=== PATIENT | male | born 1950 | race Caucasian/White ===

== ENCOUNTER 2017-05-21 13:02 | Day surgery (SDC) | payer MEDICARE ==
[2017-05-18 13:20] VITALS: BMI 14.9
[~2017-05-21 13:02] MED LIST: TRANEXAMIC ACID 1,000 MG in SODIUM CHLORIDE 0.9% 100 ML IVPB ONE; ceFAZolin 2 GM in SODIUM CHLORIDE 0.9% 100 ML IVPB ONE
[2017-05-21] MEDS ORDERED: LACTATED RINGERS 1,000 ML IV ONE ×2 (14:12)
[2017-05-21] MEDS: MIDAZOLAM 2 MG/2 ML VIAL IVP ONE ×2 (14:41→15:34)
[2017-05-21] MEDS ORDERED: fentaNYL (PF) 50 MCG/ML 2 ML AMP IVP ONE (14:44)
[2017-05-21] MEDS ORDERED: DEXAMETHASONE SOD PHOSPHATE 10 MG/ML 1 ML VIAL IV ONE (15:00)
[2017-05-21] MEDS ORDERED: ONDANSETRON 4 MG/2 ML VIAL IVP ONE (15:01)
--- NOTE | 2017-05-21 15:10 | P.ONQ ---
Anesthesiology Proc Note - PNB - Peripheral Nerve Block Performed Left Interscalene Single Time Out Performed: Yes Procedure Start Time: 14:40 Procedure Stop Time: 14:50 Indication: Acute Post-Operative Pain, Requested by physician Specifically requested for management of pain by DrFrederic: Steven Gutierrez Sedation Type: Sedate with meaningful contact maintained Preparation: Sterile Prep Position: Supine Needle Types: Facet Needle Size: 50mm (2") Needle Gauge: 21 Technique: Ultrasound (BUPIVACAIN 0.5 % WITH EPI 12 ML PLUS LIDOCAINE 2 % WITH EPI 1/200 K 12 ML )
--- NOTE | 2017-05-21 15:46 | P.OPNOTE ---
Outpatient Note - . Assessment/Comments:: Mr. Dawson presents today for his surgery. In review of his clearances, he was cleared fully by his medical doctor, but his rail car maintenance mechanic cleared him for closed reduction only, in light of his medical status. In light of this, I have discussed with Mr. Dawson the plan of closed reduction without the creation of a surgical incision. This would mainly be to reduce the fracture enough that the soft tissue was not entrapped in the fracture. I discussed this operation with him in detail and he wishes to proceed. I discussed risks and potential complications as being inclusive of, but not limited to: Malunion , nonunion, stiffness, adhesions, continued pain, need for further procedures, issues with the biceps tendon, neurovascular issues, and loss of use of arm. He wishes to proceed and has signed the consent form. The procedure will be performed momentarily for him.
[2017-05-21] MEDS ORDERED: GLYCOPYRROLATE 0.2 MG/ML 2 ML VIAL ONE (16:14)
[2017-05-21] MEDS ORDERED: LIDOCAINE 2%-EPI 1:100,000 20 ML VIAL ONE (16:14)
[2017-05-21] MEDS ORDERED: KETAMINE 10 MG/ML 20 ML VIAL ONE (16:14)
[2017-05-21] MEDS ORDERED: PROPOFOL 10 MG/ML 20 ML VIAL IV ONE (16:14)
[2017-05-21] MEDS ORDERED: ROPIVACAINE 5 MG/ML 30 ML VIAL ONE (16:14)
[2017-05-21 16:49] VITALS: TEMP 96.9
[2017-05-21 17:01] VITALS: RESP 16
[2017-05-21] MEDS: HYDROmorphone 1 MG/ML 1 ML SYRINGE IVP ONE ×2 (17:17→17:23)
[2017-05-21 18:05] VITALS: BP 139/76; PULSE 69
--- NOTE | 2017-05-21 21:49 | XR ---
EXAMINATION TYPE: XR shoulder limited LT DATE OF EXAM: 05/21/2017 COMPARISON: NONE HISTORY: CLOSED REDUCTION LEFT SHOULDER Closed reduction left shoulder. Dr. Glover with 15 sec fluoro time.
--- NOTE | 2017-05-21 23:36 | P.OP ---
Date of Procedure: 05/21/17 Preoperative Diagnosis: Postoperative Diagnosis: Procedure(s) Performed: Preoperative diagnosis: Left proximal humerus displaced fracture with soft tissue entrapment Postoperative diagnosis: Left proximal humerus displaced fracture with soft tissue entrapment Procedure: Left proximal humerus closed reduction and disengagement of soft tissue from fracture site Surgeon: Matt Anesthesia: sedation and interscalene block (which appeared to be only partially successful) EBL: none Complications: none Indications: Mr. Dawson is a 66 year old male with multiple medical problems including end-stage lung disease, hepatitis C, cachexia, and substance abuse who fell and injured his shoulder a few weeks ago. He sustained a displaced proximal humerus fracture on the left. He is left hand dominant. He has undergone preoperative CT scanning which has shown a moderately displaced humeral neck fracture, but the most notable element on his examination is the presence of puckering of the anterior skin indicating soft tissue entrapment around a spike of bone or in the fracture site. I have spoken to him and his at length about open reduction and internal fixation versus closed reduction and although he wishes to proceed with internal fixation, his pulmonary physician is worried about his ability to tolerate a large surgery of this sort without sustaining a complication such as wound problems, infection, nonunion, or complication involving his pulmonary status. I personally spoke with his pulmonary physician, Dr. Hernández, and am also similarly concerned. Up to the time of surgery, he was still actively smoking, claiming that he quit recently. I have therefore advised him to follow the advice of his pulmonary physician and avoid major surgery. He has signed a consent for closed reduction of the left proximal humerus. I have explained the procedure to him and he wishes to proceed. For further details, please see my preoperative note. Procedure: After appropriate consent was obtained from the patient, he was taken to the operating room and placed in the supine position. Interscalene block had already been administered in preoperative holding. Under C-arm imaging, the proximal humerus fracture was evaluated. The IS block did not appear to be totally effective as he was still reporting significant pain with any movement of the shoulder and palpation of the fracture area. Anesthesia personnel therefore administered propofol for IV sedation. He was able to relax a bit more, and the fracture was gently manipulated so that the skin puckering superficially was eliminated. This was performed by rotation of the shoulder in various directions with direct mobilization of the skin and underlying deltoid until the puckering was disengaged. Range of motion of the shoulder appeared to improve once this was performed. The fracture still remained moderately displaced and the fragments themselves had limited mobility , presumably due to the time since the fracture (approximately 3 weeks). This patient had significant cachexia with osteoporosis and I did not feel that forceful manipulation to try to fully reduce the fracture would be prudent. C- arm images were taken and saved before and after placement of the sling. The patient's shoulder was then placed into a shoulder immobilizer sling and final C-arm images were taken. EBL was none. He tolerated the procedure well and was taken to recovery room in stable condition. Implants: Indications for Procedure: Operative Findings: Description of Procedure:
--- NOTE | 2017-05-22 07:58 | FL ---
Fluoroscopy History: CLOSED REDUCTION LEFT SHOULDER Closed reduction left shoulder. Dr. Glover with 15 sec fluoro time.
== END 2017-05-21 18:05 | disposition home or self-care (01) ==
LOC: OR 13:02
PROVIDERS: ATTEND Orthopaedic Surgery
DX: S42.212A Unspecified displaced fracture of surgical neck of left humerus, initial encounter for closed fracture (principal); W19.XXXA Unspecified fall, initial encounter; J44.9 Chronic obstructive pulmonary disease, unspecified; Z87.891 Personal history of nicotine dependence; J43.9 Emphysema, unspecified; Z79.891 Long term (current) use of opiate analgesic; Z99.81 Dependence on supplemental oxygen; Z79.899 Other long term (current) drug therapy; R64 Cachexia; M81.0 Age-related osteoporosis without current pathological fracture
CPT/HCPCS: 73020; 23605; J2250; J1100; J2405; J3010; J1170; J2795; J2704

== ENCOUNTER 2017-06-01 09:31 | Inpatient (IN) | payer MEDICARE ==
[2017-06-01] MEDS ORDERED: SODIUM CHLORIDE 0.9% 1,000 ML IV STA (10:03)
[2017-06-01] MEDS ORDERED: DIPH,PERTUS(ACELL)TETVAC-LF 0.5 ML VIAL IM ONE (10:03)
[2017-06-01] MEDS ORDERED: HYDROmorphone 1 MG/ML 1 ML SYRINGE IVP STA ×2 (10:04→11:41)
--- NOTE | 2017-06-01 10:07 | ED ---
General Adult HPI - General Chief complaint: Fall Stated complaint: fall left arm injury Time Seen by Provider: 06/01/17 09:35 Source: patient, RN notes reviewed Mode of arrival: wheelchair Limitations: no limitations - History of Present Illness Initial comments: This is a 66-year-old male who presents to the emergency department after he got lightheaded this morning felt. Patient states his been ongoing for a year and his primary medical care doctor thought it was vertical. Patient states today he felt the back of his head and lost consciousness for about 10 seconds. Patient states he does know why he keeps getting lightheaded. Patient states he smokes drink coffee and drink some water but does not eat much. Patient states he has no appetite. Patient states he has a history of hepatitis C. Patient denies any chest pain or palpitations. Patient denies shortness of breath or difficulty breathing. Patient denies any recent fever chills or cough. Patient denies abdominal pain patient denies back pain. Patient complains of left elbow pain because when he fell he struck his elbow. Patient states he already has a left humerus fracture. - Related Data Home Medications Medication Instructions Recorded Confirmed Atorvastatin [Lipitor] 20 mg PO QAM 05/18/17 06/01/17 Hydrocodone/Acetaminophen 1 tab PO QID 05/18/17 06/01/17 [Hydrocodone/Acetaminophen 10-300] Meclizine [Antivert] 25 mg PO TID PRN 05/18/17 06/01/17 Omeprazole 40 mg PO QAM 05/18/17 06/01/17 PARoxetine HCL 20 mg PO QAM 05/18/17 06/01/17 Tamsulosin HCl [Flomax] 0.4 mg PO QAM 05/18/17 06/01/17 Temazepam 30 mg PO HS 05/18/17 06/01/17 Aspirin 81 mg PO DAILY 06/01/17 06/01/17 Diltiazem Cd [Cardizem Cd] 180 mg PO DAILY 06/01/17 06/01/17 Allergies Allergy/AdvReac Type Severity Reaction Status Date / Time No Known Allergies Allergy Verified 06/01/17 11:13 Review of Systems ROS Statement: Those systems with pertinent positive or pertinent negative responses have been documented in the HPI. ROS Other: All systems not noted in ROS Statement are negative. Past Medical History Past Medical History: Eye Disorder, Liver Disease, Osteoarthritis (OA), Prostate Disorder, Respiratory Disorder Additional Past Medical History / Comment(s): Hx Emphysema. Chronic Hepatitis C , was treated with no success. Current right eye cataract. Denies any heart, blood pressure or high cholesterol problems. States Dr put him on Cardizem as a precaution due to his age. History of Any Multi-Drug Resistant Organisms: None Reported Past Surgical History: Back Surgery Additional Past Surgical History / Comment(s): Laminectomy X3, Laminectomy with fusion X1. Had Right Upper Lobe of lung removed. Past Anesthesia/Blood Transfusion Reactions: No Reported Reaction Past Psychological History: No Psychological Hx Reported Smoking Status: Current every day smoker Past Alcohol Use History: None Reported Past Drug Use History: Marijuana - Past Family History Father Family Medical History: Cancer Additional Family Medical History / Comment(s): prostate cancer Mother Family Medical History: Cancer Additional Family Medical History / Comment(s): "Female Cancer" General Exam - General Exam Comments Initial Comments: GENERAL: Patient is well-developed and is cachectic in appearance.. Patient is nontoxic and well-hydrated and is in mild distress. ENT: Neck is soft and supple. No significant lymphadenopathy is noted. Oropharynx is clear. Moist mucous membranes. Neck has full range of motion without eliciting any pain. EYES: The sclera were anicteric and conjunctiva were pink and moist. Extraocular movements were intact and pupils were equal round and reactive to light. Eyelids were unremarkable. PULMONARY: Unlabored respirations. Good breath sounds bilaterally. No audible rales rhonchi or wheezing was noted. CARDIOVASCULAR: There is a regular rate and rhythm without any murmurs gallops or rubs. ABDOMEN: Soft and nontender with normal bowel sounds. No palpable organomegaly was noted. There is no palpable pulsatile mass. SKIN: Patient has a laceration to the scalp measuring about 2-1/2 cm. NEUROLOGIC: Patient is alert and oriented x3. Cranial nerves II through XII are grossly intact. Motor and sensory are also intact. Normal speech, volume and content. Symmetrical smile. MUSCULOSKELETAL: Patient's proximal humerus is tender and that is where he states he broke a previously. Patient now also has tenderness around the left elbow. LYMPHATICS: No significant lymphadenopathy is noted PSYCHIATRIC: Normal psychiatric evaluation. Limitations: no limitations Course Vital Signs 06/01/17 06/01/17 06/01/17 09:33 11:00 11:11 Temperature 97.2 F L Pulse Rate 107 H 67 Pulse Rate [ 75 Sitting Nursing Home Admissions Director] Pulse Rate [ 68 Standing Nursing Home Admissions Director ] Pulse Rate [ 66 Supine Nursing Home Admissions Director] Respiratory 16 17 18 Rate Blood Pressure 97/57 110/59 Blood Pressure 89/53 [Right Arm Sitting] Blood Pressure 77/50 [Right Arm Standing] Blood Pressure 113/59 [Right Arm Supine] O2 Sat by Pulse 96 96 96 Oximetry Procedures - Laceration Laceration #1 Consent Obtained: verbal consent Time Out Performed: Yes Indication: laceration Site: scalp Description: linear Type of Sutures: other (Fults 3) - Orthopedic Splinting/Casting Injury #1 Side: left Upper Extremity Injury Location: elbow Upper Extremity Immobilizer: posterior splint (This is a long arm splint) Medical Decision Making - Medical Decision Making EKG shows normal sinus rhythm at [address] interval 170 QRS is 104 QT interval 390 QTC is 453 per patient's EKG shows no ST segment elevation or depression or T wave abnormalities are noted. X-ray of the elbow shows no occult fracture possibly. X-ray the chest shows no acute abnormality. CT of the head and neck show no acute normalities - Lab Data Result diagrams: 06/01/17 09:57 06/01/17 09:57 Lab Results 06/01/17 06/01/17 06/01/17 Range/Units 09:57 09:57 09:57 WBC 8.6 (3.8-10.6) k/uL RBC 3.93 L (4.30-5.90) m/uL Hgb 11.9 L (13.0-17.5) gm/dL Hct 37.2 L (39.0-53.0) % MCV 94.6 (80.0-100.0) fL MCH 30.4 (25.0-35.0) pg MCHC 32.1 (31.0-37.0) g/dL RDW 14.0 (11.5-15.5) % Plt Count 254 (150-450) k/uL Neutrophils % 72 % Lymphocytes % 19 % Monocytes % 6 % Eosinophils % 1 % Basophils % 0 % Neutrophils # 6.2 (1.3-7.7) k/uL Lymphocytes # 1.7 (1.0-4.8) k/uL Monocytes # 0.5 (0-1.0) k/uL Eosinophils # 0.1 (0-0.7) k/uL Basophils # 0.0 (0-0.2) k/uL PT (9.0-12.0) sec INR (<1.2) APTT (22.0-30.0) sec Sodium 138 (137-145) mmol/L Potassium 4.0 (3.5-5.1) mmol/L Chloride 104 (98-107) mmol/L Carbon Dioxide 24 (22-30) mmol/L Anion Gap 10 mmol/L BUN 12 (9-20) mg/dL Creatinine 0.66 (0.66-1.25) mg/dL Est GFR (MDRD) Af Amer >60 (>60 ml/min/1.73 sqM) Est GFR (MDRD) Non-Af >60 (>60 ml/min/1.73 sqM) Glucose 121 H (74-99) mg/dL Calcium 9.1 (8.4-10.2) mg/dL Magnesium 1.6 (1.6-2.3) mg/dL Total Bilirubin 0.4 (0.2-1.3) mg/dL AST 26 (17-59) U/L ALT 35 (21-72) U/L Alkaline Phosphatase 65 (38-126) U/L Total Creatine Kinase 38 L (55-170) U/L CK-MB (CK-2) 1.0 (0.0-2.4) ng/mL CK-MB (CK-2) Rel Index 2.6 Troponin I <0.012 (0.000-0.034) ng/mL Total Protein 6.8 (6.3-8.2) g/dL Albumin 4.0 (3.5-5.0) g/dL 06/01/17 Range/Units 09:57 WBC (3.8-10.6) k/uL RBC (4.30-5.90) m/uL Hgb (13.0-17.5) gm/dL Hct (39.0-53.0) % MCV (80.0-100.0) fL MCH (25.0-35.0) pg MCHC (31.0-37.0) g/dL RDW (11.5-15.5) % Plt Count (150-450) k/uL Neutrophils % % Lymphocytes % % Monocytes % % Eosinophils % % Basophils % % Neutrophils # (1.3-7.7) k/uL Lymphocytes # (1.0-4.8) k/uL Monocytes # (0-1.0) k/uL Eosinophils # (0-0.7) k/uL Basophils # (0-0.2) k/uL PT 11.0 (9.0-12.0) sec INR 1.1 (<1.2) APTT 26.0 (22.0-30.0) sec Sodium (137-145) mmol/L Potassium (3.5-5.1) mmol/L Chloride (98-107) mmol/L Carbon Dioxide (22-30) mmol/L Anion Gap mmol/L BUN (9-20) mg/dL Creatinine (0.66-1.25) mg/dL Est GFR (MDRD) Af Amer (>60 ml/min/1.73 sqM) Est GFR (MDRD) Non-Af (>60 ml/min/1.73 sqM) Glucose (74-99) mg/dL Calcium (8.4-10.2) mg/dL Magnesium (1.6-2.3) mg/dL Total Bilirubin (0.2-1.3) mg/dL AST (17-59) U/L ALT (21-72) U/L Alkaline Phosphatase (38-126) U/L Total Creatine Kinase (55-170) U/L CK-MB (CK-2) (0.0-2.4) ng/mL CK-MB (CK-2) Rel Index Troponin I (0.000-0.034) ng/mL Total Protein (6.3-8.2) g/dL Albumin (3.5-5.0) g/dL Disposition Clinical Impression: Orthostatic hypotension, Multiple falls, Scalp laceration, Occult fracture of elbow Disposition: ADMITTED IP TO THIS [facility] Referrals: Abilio Foley MD [Primary Care Provider] - 1-2 days Time of Disposition: 11:18
[2017-06-01 10:22] LABS: ALT 35 U/L (21-72); AST 26 U/L (17-59); Alkaline Phosphatase 65 U/L (38-126); Anion Gap 10 mmol/L; Blood Urea Nitrogen 12 mg/dL (9-20); Calcium 9.1 mg/dL (8.4-10.2); Carbon Dioxide 24 mmol/L (22-30); Chloride 104 mmol/L (98-107); Glucose 121 mg/dL (74-99); Magnesium 1.6 mg/dL (1.6-2.3); Non-African American GFR(MDRD) >60 (>60 ml/min/1.73 sqM); Sodium 138 mmol/L (137-145); Total Bilirubin 0.4 mg/dL (0.2-1.3); Total Protein 6.8 g/dL (6.3-8.2)
[2017-06-01] MEDS ORDERED: LIDOCAINE/EPINEPHR/TETRACAINE 5 ML BOTTLE TOPICAL ONE (10:27)
[2017-06-01 10:29] LABS: INR 1.1 (<1.2)
[2017-06-01 10:32] LABS: Basophils % (A) 0 %; CH 30.7; CHCM 32.6; Eosinophils # (A) 0.1 k/uL (0-0.7); Eosinophils % (A) 1 %; HCT 37.2 % (39.0-53.0); HDW 2.21; HGB 11.9 gm/dL (13.0-17.5); Luc % (Auto) 1; Lymphocytes # (A) 1.7 k/uL (1.0-4.8); Lymphocytes % (A) 19 %; MCH 30.4 pg (25.0-35.0); MCHC 32.1 g/dL (31.0-37.0); MCV 94.6 fL (80.0-100.0); Mean Platelet Volume 7.7; Monocytes # (A) 0.5 k/uL (0-1.0); Monocytes % (A) 6 %; Neutrophils # (A) 6.2 k/uL (1.3-7.7); Neutrophils % (A) 72 %; RBC 3.93 m/uL (4.30-5.90); WBC 8.6 k/uL (3.8-10.6); WBC (Perox) 9.14
--- NOTE | 2017-06-01 10:37 | CT ---
EXAMINATION TYPE: CT brain husam tirado DATE OF EXAM: 06/01/2017 COMPARISON: NONE HISTORY: Fall today with posterior injury headache and neck pain CT DLP: 1468 mGycm. Automated Exposure Control for Dose Reduction was Utilized. TECHNIQUE: CT scan of the head and cervical spine are performed without contrast. FINDINGS: There is no acute intracranial hemorrhage or midline shift identified. There is ventricul ar and sulcal prominence consistent with mild age-related cerebral atrophy. Some low-attenuation in t he periventricular white matter is present. The globes are intact and the visualized sinuses are freida ar. Some patchy density bilateral external auditory canals is felt to reflect cerumen. The calvarium is intact. Cervical spine is visualized in its entirety from C1 through upper thoracic levels and demonstrates s traightened alignment without evidence of acute fracture or dislocation. Prevertebral soft tissue ap pears within normal limits. The C1-C2 articulation is within normal limits on the coronal images. Osseous structures are demineralized. Vertebral body heights are maintained. There is moderate disc s pace narrowing with mild to moderate spurring and calcified the C4-C5, C5-C6, and C6-C7 levels. Poste rior disc herniation is mildly effacing anterior thecal sac at C5-C6 level on sagittal and axial imag es. There is emphysematous change with large bulla and blebs in visualized lung apices. Surgical clip s right lung apex with pleural thickening is noted. IMPRESSION: 1. There is no acute fracture or dislocation evident in the cervical spine. 2. No acute intracranial hemorrhage or midline shift is seen.
[2017-06-01 10:49] LABS: Creatine Kinase 38 U/L (55-170)
--- NOTE | 2017-06-01 10:56 | XR ---
EXAMINATION TYPE: XR chest 2V DATE OF EXAM: 06/01/2017 COMPARISON: Prior chest x-ray [address] left shoulder 05/13/2017 HISTORY: Chest pain, trauma TECHNIQUE: Frontal and lateral views of the chest are obtained on 3 images. FINDINGS: There is no focal air space opacity, pleural effusion, or pneumothorax seen. The cardiac silhouette size is stable and small. Apical pleural thickening is present right greater than left, s urgical clips are present at the right lung apex. Bullous emphysematous changes are somewhat less con spicuous. There are overlying cardiac leads and swelling. There is been interval placement of the tho racic cord stimulator. The osseous structures are remarkable for proximal left humeral fracture, seen on prior exam. Posterior right sixth rib fracture is likely postsurgical. Surgical clips in the righ t hilar region, there is retraction of the hilum superiorly. IMPRESSION: No acute cardiopulmonary process.
[2017-06-01 11:03] LABS: Troponin I <0.012 ng/mL (0.000-0.034)
--- NOTE | 2017-06-01 11:15 | XR ---
Left elbow HISTORY: Trauma and pain 3 views of the left elbow Bone mineralization, alignment are maintained. There is a pathologic joint effusion present. Joint sp aces are maintained. No evident fracture or dislocation. IMPRESSION: Pathologic joint effusion, findings could represent an occult fracture. Follow-up as js cated.
[2017-06-01] MEDS ORDERED: SODIUM CHLORIDE 0.9% 1,000 ML IV ONE (11:18)
[2017-06-01] MEDS ORDERED: MECLIZINE 25 MG TAB PO PRN (13:27)
[2017-06-01] MEDS: MORPHINE SULFATE ER 15 MG TABLET PO SCH ×2 (13:45→20:12)
--- NOTE | 2017-06-01 14:18 | P.HPIM ---
History of Present Illness H&P Date: 06/01/17 Chief Complaint: fall This is a 66-year-old gentleman with history of end-stage COPD, severe protein calorie malnutrition, the hospital after sustaining a fall. Patient apparently has been having a long history of intermittent dizziness with changing position. Patient was prescribed meclizine. Apparently has been suffering with it for over one year Denies having any previous workup for the dizziness Patient's orthostatics were positive in the emergency room States that he feels slightly better at this time X-ray done in the emergency room did not reveal an occult fracture where his complaints are in his left elbow. Patient states that he's had a previous left humerus fracture after sustaining a fall due to this and will describe condition States that he continues to smoke cigarettes States that his pain is controlled with medications Denies having any headaches any focal weakness chest pain nausea vomiting diarrhea in the recent times Review of Systems All systems: negative (Noted in HPI) Past Medical History Past Medical History: Eye Disorder, Liver Disease, Osteoarthritis (OA), Prostate Disorder, Respiratory Disorder Additional Past Medical History / Comment(s): Hx Emphysema. Chronic Hepatitis C , was treated with no success. Current right eye cataract. Denies any heart, blood pressure or high cholesterol problems. States Dr put him on Cardizem as a precaution due to his age. History of Any Multi-Drug Resistant Organisms: None Reported Past Surgical History: Back Surgery Additional Past Surgical History / Comment(s): Laminectomy X3, Laminectomy with fusion X1. Had Right Upper Lobe of lung removed, shoulder surgery Past Anesthesia/Blood Transfusion Reactions: No Reported Reaction Past Psychological History: No Psychological Hx Reported Smoking Status: Current every day smoker Past Alcohol Use History: None Reported Additional Past Alcohol Use History / Comment(s): Has smoked 1 PPD for 50 yrs. Past Drug Use History: Marijuana Additional Drug Use History / Comment(s): States has medical marajuana card but has only used it twice and did not like the way it made him feel so he not going to use it anymore. - Past Family History Father Family Medical History: Cancer Additional Family Medical History / Comment(s): prostate cancer Mother Family Medical History: Cancer Additional Family Medical History / Comment(s): "Female Cancer" Medications and Allergies Home Medications Medication Instructions Recorded Confirmed Type Atorvastatin [Lipitor] 20 mg PO QAM 05/18/17 06/01/17 History Hydrocodone/Acetaminophen 1 tab PO QID 05/18/17 06/01/17 History [Hydrocodone/Acetaminophen 10-300] Meclizine [Antivert] 25 mg PO TID PRN 05/18/17 06/01/17 History Omeprazole 40 mg PO QAM 05/18/17 06/01/17 History PARoxetine HCL 20 mg PO QAM 05/18/17 06/01/17 History Tamsulosin HCl [Flomax] 0.4 mg PO QAM 05/18/17 06/01/17 History Temazepam 30 mg PO HS 05/18/17 06/01/17 History Aspirin 81 mg PO DAILY 06/01/17 06/01/17 History Diltiazem Cd [Cardizem Cd] 180 mg PO DAILY 06/01/17 06/01/17 History Allergies Allergy/AdvReac Type Severity Reaction Status Date / Time No Known Allergies Allergy Verified 06/01/17 11:13 Physical Exam Vitals: Vital Signs Temp Pulse Pulse Pulse Pulse Pulse Resp 06/01/17 12:49 96.3 F L 63 18 06/01/17 11:53 69 06/01/17 11:11 75 68 66 18 06/01/17 11:00 67 06/01/17 09:33 97.2 F L 107 H 16 BP BP BP BP Pulse Ox 06/01/17 12:49 107/52 97 06/01/17 11:53 122/57 96 06/01/17 11:11 89/53 77/50 113/59 96 06/01/17 11:00 110/59 96 06/01/17 09:33 97/57 96 Intake and Output 05/31/17 06/01/17 06/01/17 22:59 06:59 14:59 Intake Total 1000 Output Total 600 Balance 400 Intake: Amount of Fluid Infused ( 1000 ml) Output: Urine 600 Other: Voiding Method Urinal Weight 52.163 kg Patient Weight 06/02/17 06:59 Weight 52.163 kg Physical exam Gen. appearance oriented 3 in no distress cachetic Neck is supple no JVD Lungs diminished breath sounds or rhonchi wheezing or crackles Heart S1-S2 heard regular rate and rhythm no murmurs appreciated Abdomen is soft nontender no organomegaly bowel sounds are intact Neurologically cranial nerves II-12 grossly intact no focal motor or sensory deficits noted Brace over the left elbow tender to palpation Skin no abnormalities appreciated Results CBC & Chem 7: 06/01/17 09:57 06/01/17 09:57 Labs: Abnormal Lab Results - Last 24 Hours (Table) 06/01/17 06/01/17 06/01/17 Range/Units 09:57 09:57 09:57 RBC 3.93 L (4.30-5.90) m/uL Hgb 11.9 L (13.0-17.5) gm/dL Hct 37.2 L (39.0-53.0) % Glucose 121 H (74-99) mg/dL Total Creatine Kinase 38 L (55-170) U/L Thrombosis Risk Factor Assmnt - Choose All That Apply Each Factor Represents 1 point: Abnormal pulmonary function (COPD) Other Risk Factors: Yes Each Risk Factor Represents 2 Points: Age 61-74 years Thrombosis Risk Factor Assessment Total Risk Factor Score: 3 Thrombosis Risk Factor Assessment Level: Moderate Risk Assessment and Plan Plan: #1 syncope secondary to orthostatic hypotension #2 end-stage COPD #3 severe protein calorie malnutrition #4 ongoing tobacco use #5 essential hypertension #6 previous left humerus fracture #7 is Trias BPH #8 history of sinus tachycardia Plan Pain control We'll discontinue IV pain medication Stat cortisol level in bit sander cortisol level continue with IV fluids We'll repeat the orthostatics later tonight and tomorrow morning fall precautions disposition depending on patient's clinical progress
[2017-06-01] MEDS: HYDROcodone/APAP 10-325MG 1 EACH TAB PO PRN ×2 (15:29→21:14)
[2017-06-01] MEDS: HYDROmorphone 1 MG/ML 1 ML SYRINGE IVP PRN ×2 (18:16→23:48)
[2017-06-01 21:09] VITALS: RESP 16
[2017-06-01] MEDS ORDERED: PARoxetine 20 MG TAB PO STA (21:58)
[2017-06-01] MEDS ORDERED: TEMAZEPAM 15 MG CAP PO SCH (22:00)
[2017-06-02] MEDS: MORPHINE SULFATE ER 15 MG TABLET PO SCH ×2 (01:56→08:02)
[2017-06-02] MEDS: HYDROmorphone 1 MG/ML 1 ML SYRINGE IVP PRN ×2 (05:47→12:08)
[2017-06-02] MEDS: HYDROcodone/APAP 10-325MG 1 EACH TAB PO PRN (06:51)
[2017-06-02 07:17] VITALS: TEMP 98.2
[2017-06-02] MEDS ORDERED: DILTIAZEM CD 180 MG CAP.ER.24H PO SCH (09:00)
[2017-06-02] MEDS ORDERED: ASPIRIN 81 MG CHEW PO SCH (09:00)
--- NOTE | 2017-06-02 09:05 | P.CNOR ---
History of Present Illness - HPI Consult date: 06/01/17 History of present illness: This is a pleasant 66-year-old male who is admitted for orthostatic hypotension and left elbow pain. Patient was seen and evaluated at bedside with Dr. Sam Estrada. Patient states he fell yesterday onto the left elbow. Patient states he immediately had pain in the left elbow and has had difficulty moving the left upper extremity. Patient presented to the for this fall and patient has been treated with a long arm splint. Patient states he has a history of injury to the left humerus from 2 weeks ago but states he thinks this is healed up now. Patient denies fever, chills, or any numbness or tingling to the left upper extremity. Review of Systems See HPI. Past Medical History Past Medical History: Eye Disorder, Liver Disease, Osteoarthritis (OA), Prostate Disorder, Respiratory Disorder Additional Past Medical History / Comment(s): Hx Emphysema. Chronic Hepatitis C , was treated with no success. Current right eye cataract. Denies any heart, blood pressure or high cholesterol problems. States Dr put him on Cardizem as a precaution due to his age. History of Any Multi-Drug Resistant Organisms: None Reported Past Surgical History: Back Surgery Additional Past Surgical History / Comment(s): Laminectomy X3, Laminectomy with fusion X1. Had Right Upper Lobe of lung removed, shoulder surgery Past Anesthesia/Blood Transfusion Reactions: No Reported Reaction Past Psychological History: No Psychological Hx Reported Smoking Status: Current every day smoker Past Alcohol Use History: None Reported Additional Past Alcohol Use History / Comment(s): Has smoked 1 PPD for 50 yrs. Past Drug Use History: Marijuana Additional Drug Use History / Comment(s): States has medical marajuana card but has only used it twice and did not like the way it made him feel so he not going to use it anymore. - Past Family History Father Family Medical History: Cancer Additional Family Medical History / Comment(s): prostate cancer Mother Family Medical History: Cancer Additional Family Medical History / Comment(s): "Female Cancer" Medications and Allergies Home Medications Medication Instructions Recorded Confirmed Type Atorvastatin [Lipitor] 20 mg PO QAM 05/18/17 06/01/17 History Hydrocodone/Acetaminophen 1 tab PO QID 05/18/17 06/01/17 History [Hydrocodone/Acetaminophen 10-300] Meclizine [Antivert] 25 mg PO TID PRN 05/18/17 06/01/17 History Omeprazole 40 mg PO QAM 05/18/17 06/01/17 History PARoxetine HCL 20 mg PO QAM 05/18/17 06/01/17 History Tamsulosin HCl [Flomax] 0.4 mg PO QAM 05/18/17 06/01/17 History Temazepam 30 mg PO HS 05/18/17 06/01/17 History Aspirin 81 mg PO DAILY 06/01/17 06/01/17 History Diltiazem Cd [Cardizem Cd] 180 mg PO DAILY 06/01/17 06/01/17 History Allergies Allergy/AdvReac Type Severity Reaction Status Date / Time No Known Allergies Allergy Verified 06/01/17 11:13 Physical Examination Left upper extremity: On inspection there is no deformity of the left upper extremity. There is no swelling, erythema or ecchymosis. Skin is intact. There is tenderness to palpation over the posterior aspect of the left elbow. Patient has limited range of motion with flexion and extension of the left upper extremity due to pain and guarding. Patient has full range of motion of the wrist and hand. Neurovascular status to the left upper extremity is intact. Results X-rays of the left elbow are reviewed showing posterior fat pad sign suggestive of occult radial head fracture. No definite acute fracture or dislocation. - Labs Labs: Abnormal Lab Results - Last 24 Hours (Table) 06/01/17 06/01/17 06/01/17 Range/Units 09:57 09:57 09:57 RBC 3.93 L (4.30-5.90) m/uL Hgb 11.9 L (13.0-17.5) gm/dL Hct 37.2 L (39.0-53.0) % Glucose 121 H (74-99) mg/dL Total Creatine Kinase 38 L (55-170) U/L H & H 06/01/17 Range/Units 09:57 Hgb 11.9 L (13.0-17.5) gm/dL Hct 37.2 L (39.0-53.0) % Coagulation 06/01/17 Range/Units 09:57 INR 1.1 (<1.2) Result Diagrams: 06/01/17 09:57 06/01/17 09:57 Assessment and Plan (1) Occult fracture of elbow Status: Acute Plan: #1. Suspect occult radial head fracture of the left upper extremity. Continue long arm splint to left upper extremity at all times. Arm sling for comfort. #2. Rest, ice, and elevate the left upper extremity. #3. Follow-up with Dr. Sam Estrada in the office in one week.
[2017-06-02 12:07] VITALS: BMI 15.5
[2017-06-02 13:23] VITALS: BP 127/60; PULSE 80
--- NOTE | 2017-06-02 17:43 | P.DS ---
Providers Date of admission: 06/01/17 11:20 Attending physician: Cole Jensen Consults: 06/01/17 11:18 Consult Physician Urgent Consulting Provider: [facility] Consult Reason/Comments: Occult left elbow fracture Do you want consulting provider notified?: Yes Primary care physician: Abilio Foley [facility] Course: This is a 66-year-old gentleman with history of end-stage COPD, severe protein calorie malnutrition, the hospital after sustaining a fall. Patient apparently has been having a long history of intermittent dizziness with changing position. Patient was prescribed meclizine. Apparently has been suffering with it for over one year Denies having any previous workup for the dizziness Patient's orthostatics were positive in the emergency room States that he feels slightly better at this time X-ray done in the emergency room did not reveal an occult fracture where his complaints are in his left elbow. Patient states that he's had a previous left humerus fracture after sustaining a fall due to this and will describe condition States that he continues to smoke cigarettes States that his pain is controlled with medications Denies having any headaches any focal weakness chest pain nausea vomiting diarrhea in the recent times 06/02/17 significantly better was able to ambulate orthostatics negative Physical exam Gen. appearance oriented 3 in no distress cachetic Neck is supple no JVD Lungs diminished breath sounds or rhonchi wheezing or crackles Heart S1-S2 heard regular rate and rhythm no murmurs appreciated Abdomen is soft nontender no organomegaly bowel sounds are intact Neurologically cranial nerves II-12 grossly intact no focal motor or sensory deficits noted Brace over the left elbow tender to palpation Skin no abnormalities appreciated Assessment and Plan Plan: #1 syncope secondary to orthostatic hypotension due to dehydration #2 end-stage COPD #3 severe protein calorie malnutrition #4 ongoing tobacco use #5 essential hypertension #6 previous left humerus fracture #7 iBPH #8 history of sinus tachycardia discussed increased oral intake cortisol level was normal dc home OT eval for safety Plan - Discharge Summary New Discharge Prescriptions: New Morphine Sulfate ER [Ms Contin] 15 mg PO Q12HR #15 tab Continue Meclizine [Antivert] 25 mg PO TID PRN PRN Reason: Vertigo Atorvastatin [Lipitor] 20 mg PO QAM Hydrocodone/Acetaminophen [Hydrocodone/Acetaminophen 10-300] 1 tab PO QID Tamsulosin HCl [Flomax] 0.4 mg PO QAM PARoxetine HCL 20 mg PO QAM Omeprazole 40 mg PO QAM Temazepam 30 mg PO HS Diltiazem Cd [Cardizem CD] 180 mg PO DAILY Aspirin 81 mg PO DAILY Discharge Medication List Atorvastatin [Lipitor] 20 mg PO QAM 05/18/17 [History] Hydrocodone/Acetaminophen [Hydrocodone/Acetaminophen 10-300] 1 tab PO QID [History] Meclizine [Antivert] 25 mg PO TID PRN 05/18/17 [History] Omeprazole 40 mg PO QAM 05/18/17 [History] PARoxetine HCL 20 mg PO QAM 05/18/17 [History] Tamsulosin HCl [Flomax] 0.4 mg PO QAM 05/18/17 [History] Temazepam 30 mg PO HS 05/18/17 [History] Aspirin 81 mg PO DAILY 06/01/17 [History] Diltiazem Cd [Cardizem CD] 180 mg PO DAILY 06/01/17 [History] Morphine Sulfate ER [Ms Contin] 15 mg PO Q12HR #15 tab 06/02/17 [Rx] Follow up Appointment(s)/Referral(s): Abilio Foley MD [Primary Care Provider] - 1-2 days (Patient will need to call office for appointment. The office will only schedule appointments with the patient.) Sam Estrada DO [Doctor of Osteopathic Medicine] - 06/09/17 9:15 am Patient Instructions/Handouts: Laceration (DC), Elbow Fracture in Adults (DC), Hypotension (DC) Activity/Diet/Wound Care/Special Instructions: Continue splint to left upper extremity. Maintain sling for comfort. Discharge Disposition: HOME SELF-CARE
== END 2017-06-02 14:10 | disposition home or self-care (01) | DRG 562 ==
LOC: EC 09:31 → 6SEL 11:20 → 5MS5E 20:28
PROVIDERS: ADMIT Hospitalist; ATTEND Hospitalist
PROC: 3E0234Z Introduction of Serum, Toxoid and Vaccine into Muscle, Percutaneous Approach (ICD-10-PCS; principal; 2017-06-01)
PROC: 0HQ0XZZ Repair Scalp Skin, External Approach (ICD-10-PCS; 2017-06-01)
PROC: 2W39X1Z Immobilization of Left Upper Extremity using Splint (ICD-10-PCS; 2017-06-01)
DX: S52.125A Nondisplaced fracture of head of left radius, initial encounter for closed fracture (principal); E43 Unspecified severe protein-calorie malnutrition; I10 Essential (primary) hypertension; H26.9 Unspecified cataract; S01.01XA Laceration without foreign body of scalp, initial encounter; Z68.1 Body mass index [BMI] 19.9 or less, adult; I95.1 Orthostatic hypotension; S42.202D Unspecified fracture of upper end of left humerus, subsequent encounter for fracture with routine healing; J44.9 Chronic obstructive pulmonary disease, unspecified; E86.0 Dehydration; M19.90 Unspecified osteoarthritis, unspecified site; B18.2 Chronic viral hepatitis C; R29.6 Repeated falls; F12.90 Cannabis use, unspecified, uncomplicated; E65 Localized adiposity; N40.0 Benign prostatic hyperplasia without lower urinary tract symptoms; F17.210 Nicotine dependence, cigarettes, uncomplicated; Z79.82 Long term (current) use of aspirin; Z79.899 Other long term (current) drug therapy; Z80.42 Family history of malignant neoplasm of prostate; Z79.891 Long term (current) use of opiate analgesic; Z23 Encounter for immunization; Z71.3 Dietary counseling and surveillance; Z98.1 Arthrodesis status; Z91.81 History of falling; Z80.49 Family history of malignant neoplasm of other genital organs; Z90.2 Acquired absence of lung [part of]; Z87.09 Personal history of other diseases of the respiratory system; Z87.828 Personal history of other (healed) physical injury and trauma; Z86.79 Personal history of other diseases of the circulatory system; W19.XXXA Unspecified fall, initial encounter
CPT/HCPCS: 12001; 29105; 36415; 70450; 71020; 72125; 80053; 82533; 82550; 82553; 83735; 84484; 85025; 85610; 85730; 90471; 90715; 93005; 96361; 96374; 96376; 99285

== ENCOUNTER → 2017-08-23 | Day surgery (SDC) | payer MEDICARE ==
[~2017-08-23] MED LIST changes: +DIAZEPAM 5 MG TAB PO STA; +HYDROcodone/APAP 5-325MG 1 EACH TAB PO PRN; +PREMYELOGRAM MEDICATION REVIEW 1 EACH MISC PO PRN; -TRANEXAMIC ACID 1,000 MG in SODIUM CHLORIDE 0.9% 100 ML IVPB ONE; -ceFAZolin 2 GM in SODIUM CHLORIDE 0.9% 100 ML IVPB ONE
[2017-08-23 08:18] VITALS: RESP 20
[2017-08-23 11:06] VITALS: BP 104/60
[2017-08-23 12:00] VITALS: PULSE 74; TEMP 97.8
--- NOTE | 2017-08-23 15:11 | FL ---
EXAMINATION TYPE: FL myelogram cervical DATE OF EXAM: 08/23/2017 CLINICAL HISTORY: Neck pain. TECHNIQUE: Fluoroscopy assisted lumbar puncture for subsequent CT cervical spine myelogram. A total o f 56 seconds of fluoroscopic time was utilized during procedure. 2 Images are acquired and saved to [employer] system. Approximately 12 cc of Omnipaque 240 was utilized for procedure. COMPARISON: None. FINDINGS: Procedure lumbar puncture was explained to patient. Benefits, alternatives, and risks were discussed. Informed consent was then obtained. Patient was placed in prone positioning for procedure. L2-L3 site is chosen. Overlying skin is cleans ed with Betadine. Lidocaine is used as anesthetic. There is visualization of spinal stimulator device near this level ascending and to lower thoracic spine. There is partial visualization of surgical ch shaheed beginning at L4 level. Under fluoroscopic guidance using paraspinal approach spinal canal is acc essed with spinal needle. At this point contrast was instilled into spinal canal. Visualized lumbar s melony canal is patent. Single image is saved. Needle was withdrawn. Patient is placed in reverse Trendelenburg position to get contrast to flow to cervical spinal canal. Image is saved showing contrast at this level. Patient has subsequently taken to CT scan for CT. Thi s report will be dictated separately. Patient was kept in the hospital for short stay after the procedure and then discharged home in stabl e condition. Vital signs were monitored before, after, and throughout procedure and remained stable w ith low blood pressure noted throughout. Patient was asymptomatic. IMPRESSION: Successful, uncomplicated fluoroscopic assisted lumbar puncture for subsequent CT myelogr am.
--- NOTE | 2017-08-24 06:49 | CT ---
EXAMINATION TYPE: CT cervical spine w con DATE OF EXAM: 08/23/2017 COMPARISON: Prior CT cervical spine June 01, 2017. HISTORY: cervical neck pain CT DLP: 610 mGycm. Automated Exposure Control for Dose Reduction was Utilized. TECHNIQUE: CT scan of the cervical spine is obtained with intrathecal contrast, axial images are obt ained, sagittal and coronal reformatted images are also reviewed. A total of 12 cc of Omnipaque 240 i s injected via lumbar puncture. FINDINGS: Cervical spine is visualized in its entirety from C1 through upper thoracic levels, demonst rates slightly straightened alignment without evidence of acute fracture or dislocation. Prevertebra l soft tissue appears within normal limits. The C1-C2 articulation is within normal limits on the co mauro images. Osseous structures are somewhat demineralized. Vertebral body heights are maintained. There is mild d isc space narrowing and spurring C4-C5 level. There is mild to moderate disc space narrowing and mild spurring C5-C6 and C6-C7 levels. Posterior disc herniations are effacing anterior thecal sac at C3-C 4 level and C5-C6 levels on sagittal images. Review of axial images shows the C2-C3 level to appear within normal limits. Axial images at C3-C4 level show broad-based left paracentral disc protrusion effacing anterior theca l sac. There are uncovertebral facet degenerative changes bilaterally contributing to moderate to sev ere left and mild right-sided neural foraminal narrowing . Axial images at C4-C5 level show broad-based right paracentral disc protrusion effacing anterior thec al sac. There are uncovertebral facet degenerative changes bilaterally causing moderate right and mil d left-sided neural foraminal narrowing. Axial images at C5-C6 level show lobulated right paracentral spur disc complex effacing anterior thec al sac, there is mild bilateral neural foraminal narrowing at this level identified. Axial images at C6-C7 level show mild bilateral neural foraminal narrowing due to marginal spurring. Axial images at C7-T1 level are felt within normal limits. Thyroid gland is felt within normal limits. Visualized lung apices show moderate to severe emphysemat ous change with bulla and bleb formation as well as apical pleural/parenchymal scarring. There are cuevas spected surgical sutures in the right lung apex. IMPRESSION: Slight straightening of cervical spine with multilevel degenerative changes as detailed a daniele better visualized after successful myelogram.
== END ==
LOC: RADPROMAIN 07:59
PROVIDERS: ATTEND Physical Medicine & Rehabilitation
DX: M50.121 Cervical disc disorder at C4-C5 level with radiculopathy (principal); M47.812 Spondylosis without myelopathy or radiculopathy, cervical region; H91.90 Unspecified hearing loss, unspecified ear; K75.9 Inflammatory liver disease, unspecified; F32.9 Major depressive disorder, single episode, unspecified; J98.4 Other disorders of lung; Z90.2 Acquired absence of lung [part of]; Z79.82 Long term (current) use of aspirin; Z79.891 Long term (current) use of opiate analgesic; Z79.899 Other long term (current) drug therapy
CPT/HCPCS: 62302; 72126; Q9966; 62284